=== PATIENT | female | born 1940 | race Caucasian/White ===

== ENCOUNTER → 2018-09-21 | Outpatient (REF) | payer MEDICARE, BC ==
[~2018-09-21] MED LIST: ASPI81CH32 PO; ASPI81TA85 PO; ASTRPOW4 XX; CBD OIL; COQ-150C PO; ENZYCAP PO; IBUP200C25 PO; IMMU1CHW PO; SUCR1TAB56 PO; TURM500C PO; VITATAB73 PO; [UNRECOGNIZED DRUG - CODE] PO
[2018-09-27 00:07] LABS: 5HIAA 24HR URINE 5.7 mg/24 hr (0.0-14.9)
== END ==
LOC: M LAB REF 10:56
PROVIDERS: ATTEND Nurse Practitioner Family
DX: C7A.092 Malignant carcinoid tumor of the stomach (principal); K29.60 Other gastritis without bleeding

== ENCOUNTER → 2018-12-29 | Outpatient (REF) | payer MEDICARE, BC ==
[~2018-12-29] MED LIST changes: -ASPI81CH32 PO; +ASPI81CH33 PO; +BIOT1TAB PO; -CBD OIL; +CBD OIL PO; +CINN500C15 PO; +MULTCAP PO; +VITA500045 PO; +[UNRECOGNIZED DRUG - CODE] PO
[2018-12-31 14:34] LABS: HPV HYBRID CAPTURE II Positive (Negative)
== END ==
LOC: M LAB REF 12:43
PROVIDERS: ATTEND Advanced Practice Midwife
DX: Z12.72 Encounter for screening for malignant neoplasm of vagina (principal)
CPT/HCPCS: 87624; G0123

== ENCOUNTER → 2019-04-07 | Outpatient (CLI) | payer MEDICARE, BC ==
[~2019-04-07] MED LIST changes: +ATOR40TA75 PO; +BETAPOW XX; +BIOT1CAP2 PO; +CINN500C2 PO; +COQ-30CA2 PO; +METO1TAB32 PO; +METO200T28 PO; +NITR0.4S14; +PRAS10TA2 PO; +TURM1CAP5 PO; +VITATAB47 PO
--- NOTE | 2019-04-08 07:26 | REP ---
ULTRASOUND RIGHT HIP SOFT TISSUES: Real-time sonographic evaluation of the right lateral hip soft tissues performed in an area of spider bite sustained in October. There is reportedly a chronic ulceration of skin in this region. Ultrasound of this area demonstrates a subcutaneous sliver of fluid with diameters 3.0 x 2.2 cm with a thickness of only 2 mm. No other underlying fluid collection is seen. Electronically Signed by Antonio Resendiz MD 04/09/2019 12:10 A
== END ==
LOC: M RAD 15:49
PROVIDERS: ATTEND Nurse Practitioner Family
DX: L98.492 Non-pressure chronic ulcer of skin of other sites with fat layer exposed (principal)

== ENCOUNTER 2019-08-06 13:26 | Outpatient (RCR) | payer MEDICARE, BC ==
[~2019-08-06 13:26] MED LIST changes: -ATOR40TA75 PO; -BETAPOW XX; -BIOT1CAP2 PO; -CINN500C2 PO; -COQ-30CA2 PO; -METO1TAB32 PO; -METO200T28 PO; -PRAS10TA2 PO; -TURM1CAP5 PO; -VITATAB47 PO
[2019-08-06] MEDS ORDERED: CINN500C2 PO (13:56)
[2019-08-06] MEDS ORDERED: BETAPOW XX (13:56)
[2019-08-06] MEDS ORDERED: METO200T28 PO (13:56)
[2019-08-06] MEDS ORDERED: METO1TAB32 PO (13:56)
[2019-08-06] MEDS ORDERED: VITATAB47 PO (13:56)
[2019-08-06] MEDS ORDERED: BIOT1CAP2 PO (13:56)
[2019-08-06] MEDS ORDERED: TURM1CAP5 PO (13:56)
[2019-08-06] MEDS ORDERED: COQ-30CA2 PO (13:56)
[2019-08-06] MEDS ORDERED: ATOR40TA75 PO (13:56)
[2019-08-06] MEDS ORDERED: PRAS10TA2 PO (13:56)
--- NOTE | 2019-08-06 16:49 | CARECAPL ---
Assessment Account #s: Initial Assessment General Diagnoses: Stent Date of event: Jun 20, 2019 Allergies: Coded Allergies: duloxetine (Verified Adverse Reaction, Mild, GI Upset, 12/09/18) oxycodone (Verified Adverse Reaction, Unknown, Confusion, 12/09/18) pregabalin (Verified Adverse Reaction, Unknown, GI Upset, 12/09/18) Uncoded Allergies: ct pigment dye #63 (Allergy, Unknown, 08/06/19) Date Entered Program: Aug 06, 2019 Risk strat for cardiac event: High Exercise Date: Aug 06, 2019 Assessment: Initial Assessment Stages of change: Preperation Exercise Prescription Plan TO EDUCATE AND BUILD ENDURANCE THROUGH MONITORED EXERCISE Modalities initiated: Treadmill (WILL ADD), Cardio-Strider (WILL ADD), Nustep (WILL ADD), Arm Aerometer (WILL ADD), Dumbells (WILL ADD), Recumbent Bike (WILL ADD) Frequency: 3 Duration (Minutes) 30 - 60 minutes total exercise a day. 15 - 20 work intervals in minutes. PRN rest intervals in minutes. Functional Capacity Goal Sustained Metabolic Equivalent of a task (MET) goal of 2.5-3.25 for 15-20 minutes. Intensity: 3-Moderate Progression (METS) Increase by: 0.5 METS every: 5 sessions TOLERATED Angina with ex: No Target Heart Rate REST +35-40 BASED ON BETA MANNIE THERAPY Resistance Training: Yes Weight (pounds): 1 Reps: 6-8 (WILL ADD) Hypertension: Yes Hypertension controlled with: Medication (METOPROLOL) Resting 143/83 Medications Scheduled Aspirin (Aspir 81), 81 MG PO DAILY, (Reported) Atorvastatin Calcium (Atorvastatin Calcium), 1 TAB PO DAILY, (Reported) B Cmplx 4/Vit D3/C/Folic/Zinc (Vital-D Rx Tablet), 1 TAB PO DAILY, (Reported) Biotin (Biotin), 1 CAP PO DAILY, (Reported) Cannabidiol (Cbd Oil), 1,000 MG PO DAILY, (Reported) Ergocalciferol (Vitamin D2) (Vitamin D2), 1 CAP PO Q7D, (Reported) Metoprolol Succinate (Metoprolol Succinate), 1 TAB PO DAILY, (Reported) Metoprolol Succinate (Metoprolol Succinate), 25 MG PO DAILY, (Reported) Multivitamin (Multivitamins), 1 CAP PO DAILY, (Reported) Nitroglycerin (Nitroglycerin), 0.4 MG PRN, (Reported) Prasugrel HCl (Prasugrel HCl), 1 TAB PO DAILY, (Reported) Ubidecarenone (Coenzyme Q10), 150 MG PO DAILY, (Reported) Scheduled PRN Ibuprofen (Ibuprofen), 800 MG PO Q8HP PRN for PAIN, (Reported) Miscellaneous Medications Beta 1,3 Glucan (Beta Glucan (1-3) Nq), 1 POW XX, (Reported) Cinnamon Bark (Cinnamon), 500 MG PO, (Reported) Turmeric/Turmeric Ext/Pepr Ext (Turmeric Complex 500 mg Cap), 1 CAP PO, (Reported) Ubidecarenone (Coq-10), 30 MG PO, (Reported) Med Change: No Intervention Education: Equipment orientation (DISCUSSED ORIENTATION TO EACH PIECE OF EXERCISE EQUIPMENT) Education Goals Met: No (WILL EDUCATE THROUGHOUT PROGRAM) Target Goals Individual exercise Rx (1) BP 140/90 or 130/80 if DM or CKD (1) Aerobic active 30+min 5 days per week (1) Nutrition Date: Aug 06, 2019 Assessment: Initial Assessment Stages of change: Preperation Lipid- med/supplement ATORVASTATIN Med Change: No Diabetes Diabetes: No Monitor Blood Sugar at home: No Medication Change: No Weight Management Weight (lbs): 169.4 Height (inches): 64 Waist Circumference (Inches): 40 BMI: 29.1 Special Diet: regular Vitamin/Supplements: Multivitamin, Vitamin D Alcohol: none Diet Access Tool: Rate your plate Score: 33 Current Weight (pounds): 169.4 Intervention Aemt Consult: No Nurse/patient discussion: Yes Dietary Goals TO MAKE HEART HEALTHY SELECTIONS,SMALLER PORTIONS Diet Class: Yes (WILL SEE BROOMCORN SCRAPER WHILE IN PROGRAM) Referral to Diabetes education: No Referral to lipid clinic: No Referral to weight mangement p: No Education Eating Healthy Education Goals Met: No (WILL CONTINUE TO EDUCATE THROUGHOUT PROGRAM) Target goal LDL-C<100 if triglycerides are >200 Non-HDL-C should be <130 (1) LDL-C<70 for high risk patients (4) HbA1c<7% (1) BMI<25 Waist cir<40in M/<35in F (1) Education Date: Aug 06, 2019 Assessment: Initial Assessment Learning Barriers: ready Knowledge Test Score: 8 Stages of change: Preperation Family Support: Yes Tobacco use: No Tobacco Use Smokeless tobacco: No Intervention Referral to smoking cessation: No Individual education and couns: No Tobacco Adjunct: No Education class schedule given: No Attended education classes: No Education Goals Met: No (WILL CONTINUE TO EDUCATE THROUGHOUT PROGRAM) Target Goals Complete cessation of tobacco use (1). Psychosocial Date: Aug 06, 2019 Assessment: Initial Assessment Psych Test (Initial/Discharge) Tool Used: Other (PHQ-9) Score: 0 Stages of change: Preperation Intervention Physician Consult: No Physician Referral: No Med Change: No Stress Management Class: No Uses Stress Management Skills: Yes Education Goals Met: No (WILL CONTINUE TO EDUCATE THROUGHOUT PROGRAM, PATIENT IS CONCERNED THAT OUR EXERCISE EQUIPMENT WILL CAUSE A FLARE UP OF HER FIBROMYALGIA, BUT IS WILLING TO TRY) Target Goal Assess presence or absence of depression using a valid screening tool (1). Maximize coping skills (2). Positive support system (2). Patient/Program Goal Preventative Medication: Yes Aspirin, Yes Beta blockade, Yes Statin/OTR lipid Lowering Fall Risk Assess: Yes (PATIENT IS NOT A FALL RISK) Provider Assessment Session Number: 1 Provider Assessment: Proceed with rehab Donny Serra RN Aug 06, 2019 16:49
== END 2019-09-01 ==
LOC: M CR 13:26
PROVIDERS: ATTEND Internal Medicine Cardiovascular Disease
DX: Z98.61 Coronary angioplasty status (principal)

== ENCOUNTER → 2020-02-15 | Outpatient (CLI) | payer MEDICARE, BC ==
[~2020-02-15] MED LIST changes: +ATOR40TA75 PO; +BETAPOW XX; +BIOT1CAP2 PO; +CINN500C2 PO; +COQ-30CA2 PO; +METO1TAB32 PO; +METO200T28 PO; +PRAS10TA2 PO; +TURM1CAP5 PO; +VITATAB47 PO
== END ==
LOC: M LAB 14:50
PROVIDERS: ATTEND Internal Medicine Gastroenterology
DX: Z85.020 Personal history of malignant carcinoid tumor of stomach (principal)

== ENCOUNTER → 2020-03-01 | Outpatient (CLI) | payer MEDICARE, BC ==
--- NOTE | 2020-03-01 09:37 | REPMRS ---
Patient History The patient states she had a clinical breast exam in December 2019.Patient is postmenopausal and is nulliparous. No known family history of cancer. Reductions of both breasts, 2006. Benign stereotactic core biopsy of the right breast, 2005. Digital Woman Screen Mammo: March 01, 2020 - Exam #: [id number] Bilateral CC and MLO view(s) were taken. Technologist: Kenisha Vines, Technologist No prior studies available for comparison. FINDINGS: There are scattered fibroglandular densities. The Volpara volumetric breast density category is: B. There is no evidence of dominant mass, architectural distortion, or grouped microcalcification typical of malignancy. 3-D tomosynthesis shows no additional findings. Assessment: BI-RADS/ACR category 1 mammogram. Negative Mammogram. Recommendation Routine screening mammogram of both breasts in 1 year (for women over age 40). This patient's Lifetime Breast Cancer RIsk is estimated at 3.2 %. This mammogram was interpreted with the aid of an FDA-approved computer-aided dectection system. Electronically Signed By: Eliot Fuentes MD 03/01/20 0936
== END ==
LOC: M WHC 08:46
PROVIDERS: ATTEND Advanced Practice Midwife
DX: Z12.31 Encounter for screening mammogram for malignant neoplasm of breast (principal)

== ENCOUNTER → 2020-03-29 | Outpatient (CLI) | payer MEDICARE, BC ==
[~2020-03-29] MED LIST changes: +ASPI81CH48 PO; -ASPI81TA85 PO; +ASPI81TA86 PO; +MECL-86 PO
--- NOTE | 2020-05-23 07:55 | REP ---
WHOLE BODY PET-CT SCAN: Delay in reporting results from malfunction of the hospital computer system as a result of malware/ransomware. COMPARISON: There are no comparison PET scans. There are no comparison CT scans or other chest, abdomen or pelvis prior studies available. TECHNIQUE: The study is performed for carcinoid tumor of the stomach. FINDINGS: Whole body scanning is performed from the skull base to the upper thighs. NECK AND SUPRACLAVICULAR AREAS: There are no hypermetabolic foci. CHEST: There is a moderately hypermetabolic focus in the left hilus with a standard uptake value of 4.5. There are no other foci in the chest. ABDOMEN, PELVIS AND UPPER THIGHS: On the CT accompanying the PET scan, there is apparent thickening of the medial wall in the gastric fundus compared to the lateral wall. This is nonspecific and could be peristalsis or could be focal wall thickening. There is slightly increased update in this medial gastric fundus wall compared to the lateral wall with the standard update value in the medial wall maximally measuring 3.89. The uptake in the lateral gastric wall is 1.9. There is a second focus of slightly increased uptake in the distal stomach near the pylorus with a maximal standard uptake value of 3.9. IMPRESSION: There is a moderately hypermetabolic focus in the left hilus and there is slightly hypermetabolic activity in the medial wall of the gastric fundus and in the distal stomach near the pylorus. The study is performed with 9.28 mCi of F18 FDG. MTDD
== END ==
LOC: M PLARAD 08:00
PROVIDERS: ATTEND Specialist
DX: D37.1 Neoplasm of uncertain behavior of stomach (principal); Z85.028 Personal history of other malignant neoplasm of stomach
CPT/HCPCS: 78815; A9552

== ENCOUNTER → 2020-03-29 | Outpatient (REF) | payer MEDICARE, BC | LOC: M SFHCWAGY 19:38 | PROVIDERS: ATTEND Advanced Practice Midwife | DX: Z12.4 Encounter for screening for malignant neoplasm of cervix (principal) | CPT/HCPCS: 87624; G0123; G0463 ==

== ENCOUNTER → 2020-04-30 | Outpatient (CLI) | payer MEDICARE, BC | LOC: M LABSMTC 09:45 | PROVIDERS: ATTEND Anesthesiology | DX: Z01.812 Encounter for preprocedural laboratory examination (principal); Z20.828 Contact with and (suspected) exposure to other viral communicable diseases | CPT/HCPCS: C9803; U0003 ==

== ENCOUNTER 2020-05-05 06:44 | Day surgery (SDC) | payer MEDICARE, BC ==
[~2020-05-05] VITALS: Ht 162.6 cm; Wt 71.2 kg
[~2020-05-05 06:44] MED LIST changes: -ASPI81CH48 PO; -MECL-86 PO; +NS 1,000 ML IV ONE
[2020-05-05] MEDS ORDERED: SIMETHICONE 40MG/0.6ML DROPS 30ML As Ordered ONE (07:23)
[2020-05-05] MEDS ORDERED: LIDOCAINE 2% 100MG/5ML SDV (FOR ANES.) As Ordered ONE (07:24)
[2020-05-05] MEDS ORDERED: propofoL 200 MG/20 ML VIAL As Ordered ONE (07:24)
[2020-05-05] MEDS ORDERED: fentaNYL 100 MCG/2 ML INJECTION (J3010) As Ordered ONE (07:26)
[2020-05-05] MEDS ORDERED: ePHEDrine SULFATE 25 MG/5 ML(5MG/ML) SYRINGE As Ordered ONE (07:50)
[2020-05-05 08:48] VITALS: BP 120/88
--- NOTE | 2020-05-11 11:37 | ROOR ---
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, Admin. Requesting Provider: Medicines: Propofol per Anesthesia Complications: No immediate complications. Procedure: Pre-Anesthesia Assessment: - The heart rate, respiratory rate, oxygen saturations, blood pressure, adequacy of pulmonary ventilation, and response to care were monitored throughout the procedure. The Endoscope was introduced through the mouth, and advanced to the second part of duodenum. The upper GI endoscopy was accomplished without difficulty. The patient tolerated the procedure well. Findings: A tattoo was seen in the gastric body, in the gastric body (greater curvature), in the gastric body (lesser curvature) and in the gastric antrum. Two 4 mm sessile polyps with no stigmata of recent bleeding were found in the gastric body. The polyp was removed with a cold snare. Resection and retrieval were complete. The exam was otherwise without abnormality. Impression: - A tattoo was seen in the gastric body, in the gastric body (greater curvature), in the gastric body (lesser curvature) and in the antrum. - Two small pale flat gastric polyps in the most proximal tattoo site/body. Resected and retrieved. - The examination was otherwise normal. Recommendation: - Telephone endoscopist for pathology results in 2 weeks. - Observe patient's clinical course. Arnold ABDULLAHI MD 05/05/2020 7:55:02 AM Number of Addenda: 0 Note Initiated On: 05/05/2020 7:31 AM Estimated Blood Loss: Estimated blood loss: none.
--- NOTE | 2020-05-11 11:37 | ROOR ---
Patient Name: Mary Alice Pringle Procedure Date: 05/05/2020 7:32 AM Date of : 1940 Age: 79 Room: OP02 Gender: Female Note Status: Finalized Procedure: Colonoscopy Indications: Screening in patient at increased risk: Family history of 1st-degree relative with colorectal cancer before age 60 years Providers: Arnold ABDULLAHI MD Referring MD: JONE HALL DO, [facility], Admin. Requesting Provider: Medicines: Monitored Anesthesia Care Complications: No immediate complications. Procedure: Pre-Anesthesia Assessment: - The heart rate, respiratory rate, oxygen saturations, blood pressure, adequacy of pulmonary ventilation, and response to care were monitored throughout the procedure. The Colonoscope was introduced through the anus and advanced to the cecum, identified by appendiceal orifice and ileocecal valve. The colonoscopy was performed without difficulty. The patient tolerated the procedure well. The quality of the bowel preparation was fair. Findings: The perianal and digital rectal examinations were normal. Two sessile polyps were found in the hepatic flexure. The polyps were diminutive in size. These polyps were removed with a cold snare. Resection and retrieval were complete. The exam was otherwise without abnormality on direct and retroflexion views. The colon (entire examined portion) was redundant. Impression: - Redundant colon. - Preparation of the colon was fair. - Two diminutive polyps at the hepatic flexure, removed with a cold snare. Resected and retrieved. - The examination was otherwise normal on direct and retroflexion views. Recommendation: - Repeat colonoscopy in 3 years for surveillance. - Repeat colonoscopy in 3 years because the bowel preparation was suboptimal. Arnold ABDULLAHI MD 05/05/2020 8:15:24 AM Number of Addenda: 0 Note Initiated On: 05/05/2020 7:32 AM Estimated Blood Loss: Estimated blood loss: none.
[2020-05-20] MEDS ORDERED: MECL-86 PO (09:20)
[2020-06-21] MEDS ORDERED: ASPI81CH48 PO (11:33)
== END 2020-05-05 08:50 | disposition home or self-care (01) ==
LOC: M OPP 06:44
PROVIDERS: ATTEND Internal Medicine Gastroenterology
DX: Z12.11 Encounter for screening for malignant neoplasm of colon (principal); Z80.0 Family history of malignant neoplasm of digestive organs; D12.3 Benign neoplasm of transverse colon; Q43.8 Other specified congenital malformations of intestine; K31.7 Polyp of stomach and duodenum; C7A.092 Malignant carcinoid tumor of the stomach; K21.9 Gastro-esophageal reflux disease without esophagitis; Z79.82 Long term (current) use of aspirin; Z79.899 Other long term (current) drug therapy; Z88.5 Allergy status to narcotic agent; Z88.8 Allergy status to other drugs, medicaments and biological substances; Z95.5 Presence of coronary angioplasty implant and graft
CPT/HCPCS: 43251; 45385; 88305; J3010

== ENCOUNTER 2020-07-22 15:32 | Emergency (ER) | payer MEDICARE, BC ==
[~2020-07-22] VITALS: Ht 162.6 cm; Wt 72.7 kg
[~2020-07-22 15:32] MED LIST changes: +ASPI81CH48 PO; +MECL-86 PO; -NS 1,000 ML IV ONE
[2020-07-22] MEDS ORDERED: GI COCKTAIL 50ML BTL(HYOSCYAMINE/MAALOX/LIDOCAINE VISCOUS)(1:3:1) PO ONE (16:30)
[2020-07-22 17:31] LABS: BASO % 0.5 % (0.0-1.0); EOS % 0.5 % (0.0-3.0); HEMATOCRIT 35.7 % (36.0-47.0); HEMOGLOBIN 12.1 g/dl (12.0-15.5); LYMPH # 0.8 10^3/uL (1.5-5.0); LYMPH % 37.6 % (24.0-44.0); MEAN CORPUSCULAR HGB CONC 33.9 g/dl (32.0-36.5); MEAN CORPUSCULAR VOLUME 88.4 fl (80.0-96.0); MONO # 0.3 10^3/uL (0.0-0.8); MONO % 12.9 % (0.0-5.0); PLATELET COUNT, AUTOMATED 117 10^3/uL (150-450); RED BLOOD COUNT 4.04 10^6/uL (4.00-5.40); WHITE BLOOD COUNT 2.1 10^3/uL (4.0-10.0)
[2020-07-22 17:42] LABS: INR 0.93; PARTIAL THROMBOPLASTIN TIME 30.2 SECONDS (24.2-38.5); PROTHROMBIN TIME 12.7 SECONDS (12.5-14.3)
[2020-07-22 18:13] LABS: ALBUMIN 3.6 GM/DL (3.2-5.2); ALT/SGPT 45 U/L (12-78); BILIRUBIN,DIRECT 0.1 MG/DL (0.0-0.2); BILIRUBIN,TOTAL 0.5 MG/DL (0.2-1.0); BLOOD UREA NITROGEN 12 MG/DL (7-18); CALCIUM LEVEL 8.9 MG/DL (8.8-10.2); CARBON DIOXIDE LEVEL 26 MEQ/L (21-32); CHLORIDE LEVEL 103 MEQ/L (98-107); CREATININE FOR GFR 0.69 MG/DL (0.55-1.30); GLOMERULAR FILTRATION RATE > 60.0 (>39); GLUCOSE, FASTING 101 MG/DL (70-100); LIPASE 183 U/L (73-393); SODIUM LEVEL 134 MEQ/L (136-145); TOTAL PROTEIN 6.8 GM/DL (6.4-8.2)
[2020-07-22] MEDS ORDERED: ISOVUE-370 76% 100ML VIAL As Ordered ONE (18:34)
--- NOTE | 2020-07-22 19:30 | REP ---
INDICATION: cough COMPARISON: None. TECHNIQUE: Portable AP view of the chest FINDINGS: The mediastinum and cardiac silhouette are stable and within normal limits for portable technique. The lung pérez are clear without acute consolidation, effusion, or pneumothorax. Skeletal structures are intact. IMPRESSION: No acute cardiopulmonary process appreciated. <Electronically signed by Jean Pierre Herrera > 07/22/20 [id number]
--- NOTE | 2020-07-22 19:41 | REPVR ---
PROCEDURE INFORMATION: Exam: CT Abdomen And Pelvis With Contrast Exam date and time: 07/22/2020 6:38 PM Age: 79 years old Clinical indication: Abdominal pain; Epigastric; Additional info: Epigastric pain TECHNIQUE: Imaging protocol: Computed tomography of the abdomen and pelvis with intravenous contrast. Radiation optimization: All CT scans at this facility use at least one of these dose optimization techniques: automated exposure control; mA and/or kV adjustment per patient size (includes targeted exams where dose is matched to clinical indication); or iterative reconstruction. Contrast material: ISOVUE 370; Contrast volume: 100 ml; Contrast route: INTRAVENOUS (IV); COMPARISON: PT PET/CT Skull/mid thigh 2020-03-29 15:52 FINDINGS: Lungs: Dependent subsegmental pulmonary atelectasis. Mediastinal space: Small gastroesophageal sliding type hiatal hernia. Liver: Normal. No mass. Gallbladder and bile ducts: Cholecystectomy clips in the right upper quadrant. Cholecystectomy clips in the right upper quadrant. Pancreas: Pancreas atrophy. Spleen: Mild splenomegaly with multiple hypodense lesions, the largest of which measures 1.5 cm, significance uncertain. Adrenal glands: Normal. No mass. 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 Stomach and bowel: Unremarkable. No obstruction. No mucosal thickening. Appendix: No evidence of appendicitis. Intraperitoneal space: Unremarkable. No free air. No significant fluid collection. Vasculature: Mild to moderate aortic and iliac artery atherosclerotic calcification. Mild right renal artery atherosclerosis. Lymph nodes: Unremarkable. No enlarged lymph nodes. Urinary bladder: Unremarkable as visualized. Reproductive: Hysterectomy. Bones/joints: Multiple scattered vertebral endplate Schmorl's node cavities. Moderate degenerative lumbar disc disease. Moderate right hip degenerative joint disease. Degenerative disc and joint disease with multilevel moderate to severe spinal and foraminal stenosis. Soft tissues: Left anterior hip soft tissue lipoma measuring 4.2 x 2.6 cm. IMPRESSION: 1. Small gastroesophageal sliding type hiatal hernia. 2. Mild splenomegaly with multiple hypodense lesions, the largest of which measures 1.5 cm, significance uncertain. 3. 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 4. Pronounced degenerative disc disease with multilevel moderate to severe foraminal and spinal stenosis. COMMENTS: Consistent with the [employer]'s Incidental Findings Committee white paper (J Am Sharyn Radiol 2018): Any incidental renal lesion less than 1 cm or classified as too small to characterize, or any incidental cystic renal lesion characterized as simple-appearing, is likely benign. No follow-up imaging is recommended for these lesions per consensus recommendations based on imaging criteria. Electronically signed by: Arnold Cantrell On 07/22/2020 19:41:08 PM
[2020-07-22 20:00] VITALS: BP 142/83
[2020-07-22] MEDS ORDERED: SUCR1TA PO (20:09)
[2020-07-22] MEDS ORDERED: OMEP40CA97 PO (20:09)
--- NOTE | 2020-07-22 21:44 | ECGEPIP ---
[facility] - ED Test Date: 2020-07-22 Pat Name: MIKALA PLATT Department: Room: - Gender: Female Hotel Associate: HEATHER : 1940 Requested By: CONSTANCE Morris Order Number: [id number] Reading MD: Chanel Perales Measurements Intervals [place] Rate: 113 P: 66 RI: 215 QRS: 18 QRSD: 100 T: 40 QT: 322 QTc: 442 Interpretive Statements SINUS TACHYCARDIA WITH FIRST DEGREE AV BLOCK INCOMPLETE RIGHT BUNDLE BRANCH BLOCK NSTTW abnormalities LOW VOLTAGE LIMB PRWP NO PRIOR Electronically Signed on 07-22-2020 21:43:28 EST by Chanel Perales
== END 2020-07-22 20:24 | disposition home or self-care (01) ==
LOC: M ED 15:32
DX: K44.9 Diaphragmatic hernia without obstruction or gangrene (principal); R05 Cough; R94.31 Abnormal electrocardiogram [ECG] [EKG]; Z20.828 Contact with and (suspected) exposure to other viral communicable diseases; R16.1 Splenomegaly, not elsewhere classified; D73.89 Other diseases of spleen; D17.71 Benign lipomatous neoplasm of kidney; M48.061 Spinal stenosis, lumbar region without neurogenic claudication; M16.11 Unilateral primary osteoarthritis, right hip; Z85.020 Personal history of malignant carcinoid tumor of stomach; Z88.6 Allergy status to analgesic agent; Z88.8 Allergy status to other drugs, medicaments and biological substances; Z79.899 Other long term (current) drug therapy
CPT/HCPCS: 36415; 71045; 74177; 80048; 80076; 81001; 83690; 85025; 85610; 85730; 87086; 93005; 99285; Q9967; U0002

== ENCOUNTER → 2020-12-30 | Outpatient (CLI) | payer MEDICARE, BC ==
[~2020-12-30] MED LIST changes: +OMEP40CA97 PO; +SUCR1TA PO
--- NOTE | 2020-12-30 16:06 | REP ---
INDICATION: PAIN IN FAYE LEGS COMPARISON: None. TECHNIQUE: Real time resendiz scale and Duplex Doppler evaluation of the bilateral lower extremity arterial vasculature using linear high frequency transducer. FINDINGS: Resendiz scale and duplex doppler images demonstrate mild scattered plaquing of the bilateral lower extremity arterial systems. There is no compelling duplex Doppler sonographic evidence of hemodynamically significant stenosis bilaterally. No arterial occlusion is seen. There are diffuse triphasic and biphasic waveforms bilaterally. JC right is 1.1. Patient was unable to tolerate pressure in the left lower extremity, dorsalis pedis and posterior tibial artery are noncompressible at 160. Peak systolic velocities (cm/sec) Common femoral artery: Right 62; Left 69 Profunda femoris: Right 88; Left 47 SFA (proximal): Right 55; Left 75 SFA (mid): Right 66; Left 66 SFA (distal): Right 50; Left 57 Popliteal artery: Right 53; Left 43 JAQUELIN (prox.): Right 57; Left 26 Tibioperoneal trunk: Right 30; Left 38 DECORATING AND ASSEMBLY SUPERVISOR (prox.): Right 30; Left 54 DECORATING AND ASSEMBLY SUPERVISOR (distal): Right 41; Left 66 JAQUELIN (distal): Right 101; Left 61 IMPRESSION: Mild atheromatous changes with no focal occlusion or stenosis. <Electronically signed by Antonio Resendiz > 12/30/20 [id number]
== END ==
LOC: M RAD 13:57
PROVIDERS: ATTEND Physician Assistant
DX: M79.604 Pain in right leg (principal); M79.605 Pain in left leg; I70.213 Atherosclerosis of native arteries of extremities with intermittent claudication, bilateral legs

== ENCOUNTER → 2021-02-27 | Outpatient (CLI) | payer MEDICARE, BC ==
[~2021-02-27] MED LIST changes: +OMEP40CA4 PO; -OMEP40CA97 PO
--- NOTE | 2021-02-27 08:49 | REPMRS ---
Patient History The patient states she has not had a clinical breast exam in over a year. Patient is postmenopausal, has history of stomach cancer at age 71, and is nulliparous. No known family history of cancer. Reductions of both breasts, 2006. Benign stereotactic core biopsy of the right breast, 2006. Patient states no breast complaints today. Patient has signed MRS History Sheet. Digital Woman Screen Mammo: February 27, 2021 - Exam #: [id number] Bilateral CC and MLO view(s) were taken. Technologist: Halle Mcgee, Technologist Prior study comparison: March 01, 2020, bilateral digital woman screen mammo performed at [facility]. 2019, bilateral digital woman screen mammo, performed at [facility]. FINDINGS: There are scattered fibroglandular densities. Screening. Digital screening (2D) mammography was performed bilaterally in the CC and MLO projections. Additionally, breast tomosynthesis (3D mammography) was performed bilaterally in the CC and MLO projections. Todays exam was compared to the prior exam/exams. By history, the patient has no complaints of a palpable breast abnormality or other significant breast complaints. The breasts are unchanged in size and shape. There are no emanuel-soft tissue densities or spiculated masses. There is no internal architectural distortion.Once again, stable benign appearing calcifications are seen. There are no suspicious emanuel-calcific clusters. Skin thickening or nipple retraction is not present. IMPRESSION: BI-RADS Category 2- Benign Findings. There is no evidence of malignant alteration of the breasts. Followup examination recommended in one year. The Volpara volumetric breast density category is B, there are scattered areas of fibroglandular densities. This mammogram was read with the assistance of Ricardo JetLydiaUlthera,an FDA approved computer aided detection system for mammography. The lifetime Tyrer-Cuzick score is 2.2 % Negative x-ray reports should not delay surgical consultation if a dominant or clinically suspicious mass is present. Not all breast cancers can be identified by mammography. Therefore, we recommend that you continue to perform regular breast self-examination and physical examination and then promptly contact your physician of any concerns or changes. Adenosis and dense breasts may obscure an underlying neoplasm. Assessment: BI-RADS/ACR category 2 mammogram. Benign Findings. Recommendation Routine screening mammogram of both breasts in 1 year. Electronically Signed By: Flavio Espino, 02/27/21 0886
== END ==
LOC: M WHC 07:58
PROVIDERS: ATTEND Advanced Practice Midwife
DX: Z12.31 Encounter for screening mammogram for malignant neoplasm of breast (principal)

== ENCOUNTER → 2021-06-16 | Outpatient (CLI) | payer MEDICARE, BC ==
--- NOTE | 2021-06-16 08:36 | REP ---
INDICATION: LOW BACK PAIN, UNSPECIFIED COMPARISON: None. TECHNIQUE: AP, lateral, bilateral oblique, and coned-down views of the lumbar spine. FINDINGS: Age-related osteopenia and moderate multilevel degenerative changes include endplate irregularity/sclerosis, marginal osteophytosis, and hypertrophic facet changes. Alignment is maintained. No acute fracture/compression injury or subluxation. Mild disc space narrowing is also suggested primarily L5-S1 and L4-5. IMPRESSION: Osteopenia and moderate multilevel degenerative spondylosis. <Electronically signed by Jean Pierre Herrera > 06/16/21 [id number]
== END ==
LOC: M PLAIMG 07:44
PROVIDERS: ATTEND Physician Assistant
DX: M85.88 Other specified disorders of bone density and structure, other site (principal); M47.816 Spondylosis without myelopathy or radiculopathy, lumbar region; M25.78 Osteophyte, vertebrae

== ENCOUNTER → 2021-08-07 | Outpatient (CLI) | payer MEDICARE, BC ==
[~2021-08-07] MED LIST changes: +TIZA4TAB4
--- NOTE | 2021-08-09 07:32 | REP ---
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 COMPARISON: PET-CT, 03/29/2020. CT abdomen and pelvis with IV contrast, 07/22/2020. TECHNIQUE: Following the intravenous injection of 9.1 mCi of FDG and a standard uptake period, a noncontrast CT scan, followed by a PET scan were acquired along the length of the body from the base of the skull to the mid thighs. The noncontrast helical CT imaging was performed, without breath hold, for attenuation correction of PET images and anatomic correlation, but not for primary interpretation, as it is not a of standard diagnostic quality. Images were reviewed in the axial, coronal and sagittal planes. FINDINGS: Head and neck: There is a normal distribution of FDG activity in the visualized brain parenchyma. There is calcific vascular disease of both carotid bifurcations. There is a left-sided hypermetabolic nodule, max SUV 5.0. The right thyroid lobe is surgically absent. Chest: There is no significant FDG activity in the pulmonary parenchyma. There are no pleural effusions. The heart size is normal. There is no pericardial effusion. There is calcific vascular disease of the thoracic aorta and coronary arteries. There is no adenopathy in the mediastinum, hilum or axilla by size criterion or metabolic activity., in particular, the activity seen at the left renal hilum on the prior exam has resolved. Abdomen and pelvis: There is a small hiatal hernia. There is a normal distribution of FDG activity within the gastrointestinal and genitourinary tract. No evidence of lymphadenopathy. In particular, there is no abnormal activity in the area of the gastric antrum, seen previously. There is calcific vascular disease of the abdominal aorta. The gallbladder is surgically absent. There is colonic diverticulosis without diverticulitis. There is a stable, 1.8 cm in diameter, angiomyolipoma in the upper pole cortex of the right kidney. The spleen is unremarkable in size and degree of activity. Musculoskeletal: There are no suspicious hypermetabolic, osteolytic or osteo sclerotic lesions. There is multilevel degenerative disc disease of the thoracolumbar spine. 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 Status post anterior interbody fusion, C6-7. IMPRESSION: 1. There are no foci of abnormal FDG activity to suggest neoplastic disease. In particular, there has been interval resolution of abnormal activity in the area of the gastric antrum and left hilum. 2. Splenomegaly and heterogeneous splenic parenchyma has resolved. 3. Other findings as noted not significantly changed. <Electronically signed by Richard Guzman > 08/09/21 [id number]
== END ==
LOC: M PLARAD 14:03
PROVIDERS: ATTEND Nurse Practitioner Adult Health
DX: C7A.092 Malignant carcinoid tumor of the stomach (principal)
CPT/HCPCS: 78815; A9552

== ENCOUNTER → 2022-01-11 | Outpatient (CLI) | payer MEDICARE, BC ==
[~2022-01-11] MED LIST changes: +E-Z-GAS II EFFERVESCENT PACKET (SODIUM BICARB./CITRIC ACID/SIMETHICONE) As Ordered ONE; +E-Z-HD 98% w/w 340GM SUSP BTL As Ordered ONE; +E-Z-PAQUE 96% w/w SUSP 176GM BTL As Ordered ONE; +RA T500C2 PO; +TIZA10TA; -TIZA4TAB4; +[UNRECOGNIZED DRUG - OTHER]
== END ==
LOC: M RAD 08:26
PROVIDERS: ATTEND Internal Medicine Gastroenterology
DX: R13.19 Other dysphagia (principal)

== ENCOUNTER → 2022-01-18 | Outpatient (CLI) | payer MEDICARE, BC ==
[~2022-01-18] MED LIST changes: -E-Z-GAS II EFFERVESCENT PACKET (SODIUM BICARB./CITRIC ACID/SIMETHICONE) As Ordered ONE; -E-Z-HD 98% w/w 340GM SUSP BTL As Ordered ONE; -E-Z-PAQUE 96% w/w SUSP 176GM BTL As Ordered ONE
== END ==
LOC: M LABSMTC 11:13
PROVIDERS: ATTEND Anesthesiology
DX: Z01.812 Encounter for preprocedural laboratory examination (principal); Z20.822 Contact with and (suspected) exposure to COVID-19

== ENCOUNTER 2022-01-23 10:13 | Day surgery (SDC) | payer MEDICARE, BC ==
[~2022-01-23] VITALS: Ht 162.6 cm; Wt 76.4 kg
[~2022-01-23 10:13] MED LIST changes: +NS 1,000 ML IV ONE
[2022-01-23] MEDS ORDERED: propofoL 200 MG/20 ML VIAL As Ordered ONE (10:27)
[2022-01-23] MEDS ORDERED: LIDOCAINE 2% 100MG/5ML SDV (FOR ANES.) As Ordered ONE (10:27)
[2022-01-23] MEDS ORDERED: fentaNYL 100 MCG/2 ML INJECTION As Ordered ONE (11:57)
[2022-01-23 12:35] VITALS: BP 124/80
== END 2022-01-23 12:47 | disposition home or self-care (01) ==
LOC: M OPP 10:13
PROVIDERS: ATTEND Internal Medicine Gastroenterology
DX: C7A.092 Malignant carcinoid tumor of the stomach (principal); R13.14 Dysphagia, pharyngoesophageal phase; R13.12 Dysphagia, oropharyngeal phase; K31.7 Polyp of stomach and duodenum; K22.2 Esophageal obstruction; Z80.0 Family history of malignant neoplasm of digestive organs; Z79.82 Long term (current) use of aspirin; Z79.899 Other long term (current) drug therapy; Z88.5 Allergy status to narcotic agent; Z88.8 Allergy status to other drugs, medicaments and biological substances
CPT/HCPCS: 43239; 43450; 88305; 88341; 88342; J3010

== ENCOUNTER → 2022-03-19 | Outpatient (CLI) | payer MEDICARE, BC ==
[~2022-03-19] MED LIST changes: +COQ1200C3 PO; -NS 1,000 ML IV ONE; +OMEG1CAP54 PO; +RA B1TAB7 PO; +VIT D PO; +[UNRECOGNIZED DRUG - OTHER] PO; +[UNRECOGNIZED DRUG - OTHER] PO; +[UNRECOGNIZED DRUG - OTHER] PO; +vit c PO
== END ==
LOC: M PLARAD 14:54
PROVIDERS: ATTEND Specialist
DX: C7A.8 Other malignant neuroendocrine tumors (principal)
CPT/HCPCS: 78815; A9552

== ENCOUNTER → 2022-10-19 | Outpatient (REF) | payer MEDICARE, BC | LOC: M SFHCWAGY 16:55 | PROVIDERS: ATTEND Advanced Practice Midwife | DX: N90.89 Other specified noninflammatory disorders of vulva and perineum (principal) ==

== ENCOUNTER 2023-12-02 06:39 | Day surgery (SDC) | payer MEDICARE, BC ==
[~2023-12-02] VITALS: Ht 162.6 cm; Wt 74.8 kg
[~2023-12-02 06:39] MED LIST changes: +[UNRECOGNIZED DRUG - CODE]; +[UNRECOGNIZED DRUG - REMARK]
[2023-12-02] MEDS: NS 1,000 ML IV ONE (07:25)
[2023-12-02] MEDS ORDERED: propofoL 200 MG/20 ML VIAL As Ordered ONE (08:27)
[2023-12-02] MEDS ORDERED: LIDOCAINE 2% 100MG/5ML SDV (FOR ANES.) As Ordered ONE (08:27)
[2023-12-02] MEDS ORDERED: fentaNYL 100 MCG/2 ML INJECTION As Ordered ONE (08:27)
[2023-12-02 09:20] VITALS: TEMP 97.1
[2023-12-02 09:40] VITALS: BP 150/61; O2SAT 99
== END 2023-12-02 09:47 | disposition home or self-care (01) ==
LOC: M OPP 06:39
PROVIDERS: ATTEND Internal Medicine Gastroenterology
DX: Z12.11 Encounter for screening for malignant neoplasm of colon (principal); Z86.010 Personal history of colon polyps; K63.5 Polyp of colon; K64.8 Other hemorrhoids; K57.30 Diverticulosis of large intestine without perforation or abscess without bleeding; K31.A0 Gastric intestinal metaplasia, unspecified; C7A.092 Malignant carcinoid tumor of the stomach; Z87.19 Personal history of other diseases of the digestive system; I25.10 Atherosclerotic heart disease of native coronary artery without angina pectoris; Z95.5 Presence of coronary angioplasty implant and graft; Z79.82 Long term (current) use of aspirin; Z79.899 Other long term (current) drug therapy; Z88.5 Allergy status to narcotic agent; Z88.8 Allergy status to other drugs, medicaments and biological substances; Z91.041 Radiographic dye allergy status
CPT/HCPCS: 43239; 45385; 88305; J3010

== ENCOUNTER → 2024-05-26 | Outpatient (CLI) | payer MEDICARE, BC ==
[~2024-05-26] MED LIST changes: +METO200T15 PO; -METO200T28 PO
== END ==
LOC: M WHC 08:45
PROVIDERS: ATTEND Advanced Practice Midwife
DX: Z12.31 Encounter for screening mammogram for malignant neoplasm of breast (principal)

== ENCOUNTER → 2025-07-06 | Outpatient (CLI) | payer MEDICARE, BC ==
[~2025-07-06] MED LIST changes: -RA T500C2 PO; +TURM500C10 PO
== END ==
LOC: M WHC 10:32
PROVIDERS: ATTEND Advanced Practice Midwife
DX: Z12.31 Encounter for screening mammogram for malignant neoplasm of breast (principal); R92.313 Mammographic fatty tissue density, bilateral breasts

== ENCOUNTER → 2025-07-20 | Outpatient (REF) | payer MEDICARE, BC ==
[2025-07-21 16:21] LABS: BVAB 2 NEGATIVE (NEGATIVE)
[2025-07-21 16:42] LABS: CANDIDA GLABRATA NAA NOT DETECTED (NOT DETECTED); TRICH VAG BY NAA NOT DETECTED (NOT DETECTED)
[2025-07-21 16:47] LABS: CHLAMYDIA TRACHOMATIS NAA NOT DETECTED (NOT DETECTED)
== END ==
LOC: M SFHCWAGY 12:42
PROVIDERS: ATTEND Advanced Practice Midwife
DX: N76.0 Acute vaginitis (principal); Z11.3 Encounter for screening for infections with a predominantly sexual mode of transmission; Z72.89 Other problems related to lifestyle